=== PATIENT | female | born 1960 | race African-American/Black ===

== ENCOUNTER 2017-10-20 23:36 | Inpatient (IN) | payer MEDICARE, MEDICAID ==
[~2017-10-20] VITALS: Ht 165.1 cm; Wt 162.4 kg
[~2017-10-20 23:36] MED LIST: AMLO5TAB4 PO; DOCU250C87 PO; FLUT1DIS6 IH; FURO-152 PO; IBUP-2030 PO; LISI40TA4 PO; METO100T16 PO; SPIR50TA26 PO; [UNRECOGNIZED DRUG - CODE] PO
[2017-10-20] MEDS ORDERED: ALBUTEROL (0.083%) 2.5MG/3ML NEB HHN STA (23:41)
[2017-10-20] MEDS ORDERED: FUROSEMIDE 40MG/4ML VIAL IV STA (23:41)
[2017-10-20] MEDS ORDERED: IPRATROPIUM BROMIDE (0.02%) 0.5MG/2.5ML NEB HHN STA (23:41)
[2017-10-20] MEDS ORDERED: METHYLPREDNISOLONE SOD SUCC 125 MG/2 ML VIAL IV STA (23:41)
[2017-10-20] MEDS ORDERED: NITROGLYCERIN OINT 1GM/INCH UDPKT TD STA (23:41)
[2017-10-21] VITALS (7 sets, daily range): BP systolic 136–182; BP diastolic 71–101
[2017-10-21 00:37] LABS: BASOPHILS % 0.5 % (0.0-2.0); EOSINOPHILS % 2.9 % (0.0-5.0); HEMATOCRIT. 33.8 % (36.0-48.0); HEMOGLOBIN. 11.1 g/dL (12.0-16.0); MEAN CORPUSCULAR HEMOGLOBIN 28.4 pg (28.0-32.0); MEAN CORPUSCULAR VOLUME 86.7 fL (81.0-99.0); MEAN PLATELET VOLUME 7.1 fl (7.4-10.4); MONOCYTES % 9.9 % (2.0-8.0); NEUTROPHILS % 60.7 % (40.0-76.0); PLATELET 375 x1000/uL (130-400); RED CELL DISTRIBUTION WIDTH 15.2 % (11.6-14.6)
[2017-10-21 00:46] LABS: INR 1.1; PROTHROMBIN TIME 11.1 sec (9.4-11.6)
[2017-10-21 00:50] LABS: CHLORIDE 106 mEq/L (98-107)
[2017-10-21] MEDS ORDERED: ONDANSETRON HCL 4MG/2ML VIAL IV PRN (06:30)
[2017-10-21] MEDS ORDERED: IPRATROPIUM/ALBUTEROL 0.5-3(2.5)MG/3ML NEB INH PRN (06:30)
[2017-10-21] MEDS ORDERED: LORAZEPAM 2MG/ML CPJ IV PRN (06:30)
[2017-10-21] MEDS ORDERED: DIPHENHYDRAMINE 50MG/ML VIAL IV PRN (06:30)
[2017-10-21] MEDS ORDERED: DOCUSATE SODIUM 100MG CAPSULE PO PRN (06:30)
[2017-10-21] MEDS ORDERED: NA PHOS,M-B/NA PHOS,DI-BA ENEMA 118ML PR PRN (06:30)
[2017-10-21] MEDS ORDERED: GUAIFENESIN 200MG/10ML SUGAR FREE UDC PO PRN (06:30)
[2017-10-21] MEDS ORDERED: MAGNESIUM/ALUMINUM HYDROXIDE/SIMETHICONE 30ML UDC PO PRN (06:30)
[2017-10-21 07:19] LABS: CHLORIDE 107 mEq/L (98-107)
[2017-10-21] MEDS ORDERED: LIDOCAINE HCL/PF 1% 2ML VIAL ONE (09:36)
[2017-10-21] MEDS ORDERED: MORPHINE SULFATE 4 MG/ML CPJ (NOT FOR IM USE) IV PRN (10:00)
[2017-10-21] MEDS: ASPIRIN 81MG EC TABLET PO SCH (10:18)
[2017-10-21] MEDS: ENOXAPARIN 40MG/0.4ML SYR SUBCUT SCH ×2 (10:19→21:49)
[2017-10-21] MEDS: FUROSEMIDE 40MG/4ML VIAL IV SCH (10:19)
[2017-10-21] MEDS: HYDROCODONE/ACETAMINOPHEN 5/325MG TABLET PO PRN (10:27)
[2017-10-21] MEDS: HYDRALAZINE HCL 50MG TABLET PO SCH ×2 (14:57→21:49)
[2017-10-21 17:52] LABS: BG BASE EXCESS 2.2 mmol/L (-2.0-2.0); BG BILEVEL POS AIRWAY PRESSURE 15/5; BG CARBOXYHEMOGLOBIN 0.2 % (0.5-1.5); BG DEOXYHEMOGLOBIN 1.1 % (0.0-5.0); BG FRACTION INSPIRED OXYGEN 50; BG HCO3 ACT 29.5 mmol/L (22.0-26.0); BG METHEMOGLOBIN 0.3 % (0.0-1.5); BG OXYGEN SATURATION 98.9 % (92.0-98.5); BG OXYHEMOGLOBIN 98.4 % (94.0-97.0); BG PCO2 59.1 mmHg (35.0-45.0); BG PH 7.316 (7.350-7.450); BG PO2 162.6 mmHg (75.0-100.0); BG SAMPLE SITE RIGHT RADIAL; BG TOTAL HEMOGLOBIN 11.8 g/dL (12.0-18.0); BG VENT MODE MASK - BIPAP; BG VENT RATE 16 set
[2017-10-21] MEDS ORDERED: HYDRALAZINE HCL 50MG TABLET PO SCH (22:00)
[2017-10-22] VITALS (13 sets, daily range): BP systolic 124–193; BP diastolic 23–122
[2017-10-22 01:39] LABS: CREATINE KINASE 191 IU/L (26-192); CREATINE KINASE MB FRACTION 2.5 ng/mL (0.5-3.6)
[2017-10-22] MEDS: IPRATROPIUM/ALBUTEROL 0.5-3(2.5)MG/3ML NEB HHN SCH ×5 (04:31→20:16)
[2017-10-22] MEDS: HYDROCODONE/ACETAMINOPHEN 5/325MG TABLET PO PRN ×3 (05:06→20:59)
[2017-10-22] MEDS: HYDRALAZINE HCL 50MG TABLET PO SCH ×3 (05:41→20:59)
[2017-10-22 06:49] LABS: BASOPHILS % 0.4 % (0.0-2.0); EOSINOPHILS % 0.2 % (0.0-5.0); HEMATOCRIT. 32.6 % (36.0-48.0); HEMOGLOBIN. 10.3 g/dL (12.0-16.0); LYMPHOCYTES % 22.5 % (20.0-50.0); MEAN CORPUSCULAR HEMOGLOBIN 27.8 pg (28.0-32.0); MEAN CORPUSCULAR VOLUME 87.6 fL (81.0-99.0); MEAN PLATELET VOLUME 7.4 fl (7.4-10.4); MONOCYTES % 9.1 % (2.0-8.0); NEUTROPHILS % 67.8 % (40.0-76.0); PLATELET 355 x1000/uL (130-400); RED BLOOD CELL COUNT 3.72 mill/uL (4.2-5.4); RED CELL DISTRIBUTION WIDTH 15.5 % (11.6-14.6)
[2017-10-22] MEDS: ENOXAPARIN 40MG/0.4ML SYR SUBCUT SCH ×2 (08:39→21:00)
[2017-10-22] MEDS: FUROSEMIDE 40MG/4ML VIAL IV SCH (08:39)
[2017-10-22] MEDS: ASPIRIN 81MG EC TABLET PO SCH (08:40)
[2017-10-22] MEDS ORDERED: LIDOCAINE HCL/PF 1% 2ML VIAL ONE (09:33)
[2017-10-22 09:45] LABS: CHLORIDE 105 mEq/L (98-107)
[2017-10-22 10:00] LABS: CREATINE KINASE 192 IU/L (26-192); CREATINE KINASE MB FRACTION 2.2 ng/mL (0.5-3.6); HDL CHOLESTEROL 48 mg/dL (40-59); LDL CHOLESTEROL 112 mg/dL (5-100); T4 FREE 1.18 ng/dL (0.76-1.46)
[2017-10-22 15:23] LABS: BG BASE EXCESS 6.4 mmol/L (-2.0-2.0); BG CARBOXYHEMOGLOBIN 0.8 % (0.5-1.5); BG DEOXYHEMOGLOBIN 3.1 % (0.0-5.0); BG FRACTION INSPIRED OXYGEN 36; BG METHEMOGLOBIN 0.3 % (0.0-1.5); BG OXYGEN SATURATION 96.9 % (92.0-98.5); BG OXYHEMOGLOBIN 95.8 % (94.0-97.0); BG PCO2 57.4 mmHg (35.0-45.0); BG PH 7.377 (7.350-7.450); BG PO2 88.9 mmHg (75.0-100.0); BG SAMPLE SITE RIGHT RADIAL; BG TOTAL HEMOGLOBIN 11.4 g/dL (12.0-18.0); BG VENT MODE NASAL CANNULA
[2017-10-22 17:51] LABS: CREATINE KINASE MB FRACTION 1.7 ng/mL (0.5-3.6)
[2017-10-23] VITALS (17 sets, daily range): BP systolic 130–195; BP diastolic 54–121
[2017-10-23] MEDS: IPRATROPIUM/ALBUTEROL 0.5-3(2.5)MG/3ML NEB HHN SCH ×6 (00:51→21:53)
[2017-10-23] MEDS: HYDRALAZINE HCL 50MG TABLET PO SCH ×3 (05:10→21:16)
[2017-10-23 07:20] LABS: BASOPHILS % 0.7 % (0.0-2.0); EOSINOPHILS % 2.2 % (0.0-5.0); HEMOGLOBIN. 10.3 g/dL (12.0-16.0); LYMPHOCYTES % 34.3 % (20.0-50.0); MEAN CORPUSCULAR HEMOGLOBIN 28.1 pg (28.0-32.0); MEAN CORPUSCULAR VOLUME 87.7 fL (81.0-99.0); MEAN PLATELET VOLUME 7.6 fl (7.4-10.4); MONOCYTES % 9.1 % (2.0-8.0); NEUTROPHILS % 53.7 % (40.0-76.0); PLATELET 355 x1000/uL (130-400); RED BLOOD CELL COUNT 3.65 mill/uL (4.2-5.4); RED CELL DISTRIBUTION WIDTH 14.9 % (11.6-14.6)
[2017-10-23 07:32] LABS: CHLORIDE 104 mEq/L (98-107)
[2017-10-23] MEDS: FUROSEMIDE 40MG/4ML VIAL IV SCH (09:39)
[2017-10-23] MEDS: ASPIRIN 81MG EC TABLET PO SCH (09:40)
[2017-10-23] MEDS: ENOXAPARIN 40MG/0.4ML SYR SUBCUT SCH ×2 (09:40→21:17)
[2017-10-23] MEDS: CLONIDINE 0.1MG TABLET PO PRN (17:01)
[2017-10-23] MEDS: HYDROCODONE/ACETAMINOPHEN 5/325MG TABLET PO PRN (17:01)
[2017-10-24] VITALS (12 sets, daily range): BP systolic 91–178; BP diastolic 49–112
[2017-10-24] MEDS: IPRATROPIUM/ALBUTEROL 0.5-3(2.5)MG/3ML NEB HHN SCH ×6 (00:36→20:31)
[2017-10-24] MEDS: HYDRALAZINE HCL 50MG TABLET PO SCH ×3 (05:43→21:52)
[2017-10-24] MEDS: FUROSEMIDE 40MG/4ML VIAL IV SCH (08:58)
[2017-10-24] MEDS: ASPIRIN 81MG EC TABLET PO SCH (08:58)
[2017-10-24] MEDS: ENOXAPARIN 40MG/0.4ML SYR SUBCUT SCH ×2 (08:58→21:53)
[2017-10-24] MEDS: CLONIDINE 0.1MG TABLET PO PRN (12:49)
[2017-10-24] MEDS: HYDROCODONE/ACETAMINOPHEN 5/325MG TABLET PO PRN ×2 (13:15→21:56)
[2017-10-25] VITALS (12 sets, daily range): BP systolic 109–159; BP diastolic 62–96
[2017-10-25] MEDS: IPRATROPIUM/ALBUTEROL 0.5-3(2.5)MG/3ML NEB HHN SCH ×6 (00:07→20:43)
[2017-10-25 06:43] LABS: BASOPHILS % 0.6 % (0.0-2.0); EOSINOPHILS % 3.8 % (0.0-5.0); HEMATOCRIT. 33.4 % (36.0-48.0); HEMOGLOBIN. 10.7 g/dL (12.0-16.0); LYMPHOCYTES % 25.9 % (20.0-50.0); MEAN CORPUSCULAR HEMOGLOBIN 27.9 pg (28.0-32.0); MEAN CORPUSCULAR VOLUME 86.9 fL (81.0-99.0); MEAN PLATELET VOLUME 7.4 fl (7.4-10.4); MONOCYTES % 12.1 % (2.0-8.0); NEUTROPHILS % 57.6 % (40.0-76.0); PLATELET 353 x1000/uL (130-400); RED BLOOD CELL COUNT 3.85 mill/uL (4.2-5.4)
[2017-10-25] MEDS: HYDRALAZINE HCL 50MG TABLET PO SCH ×3 (07:01→21:13)
[2017-10-25 07:42] LABS: CHLORIDE 101 mEq/L (98-107)
[2017-10-25] MEDS: ENOXAPARIN 40MG/0.4ML SYR SUBCUT SCH ×2 (08:17→21:13)
[2017-10-25] MEDS: FUROSEMIDE 40MG/4ML VIAL IV SCH (08:17)
[2017-10-25] MEDS: ASPIRIN 81MG EC TABLET PO SCH (08:17)
[2017-10-25] MEDS: HYDROCODONE/ACETAMINOPHEN 5/325MG TABLET PO PRN (21:13)
[2017-10-26] VITALS (12 sets, daily range): BP systolic 112–179; BP diastolic 62–111
[2017-10-26] MEDS: IPRATROPIUM/ALBUTEROL 0.5-3(2.5)MG/3ML NEB HHN SCH ×6 (00:16→20:03)
[2017-10-26] MEDS: HYDRALAZINE HCL 50MG TABLET PO SCH ×3 (06:41→22:29)
[2017-10-26] MEDS: FUROSEMIDE 40MG/4ML VIAL IV SCH (08:46)
[2017-10-26] MEDS: ASPIRIN 81MG EC TABLET PO SCH (08:46)
[2017-10-26] MEDS: ENOXAPARIN 40MG/0.4ML SYR SUBCUT SCH ×2 (08:46→22:28)
[2017-10-26] MEDS: CLONIDINE 0.1MG TABLET PO PRN (16:47)
[2017-10-26] MEDS: ACETAMINOPHEN 325MG TABLET PO PRN (16:53)
[2017-10-27] VITALS (12 sets, daily range): BP systolic 127–166; BP diastolic 56–109
[2017-10-27] MEDS: IPRATROPIUM/ALBUTEROL 0.5-3(2.5)MG/3ML NEB HHN SCH ×6 (01:00→20:05)
[2017-10-27 06:22] LABS: BASOPHILS % 0.6 % (0.0-2.0); EOSINOPHILS % 2.5 % (0.0-5.0); HEMATOCRIT. 33.5 % (36.0-48.0); HEMOGLOBIN. 10.9 g/dL (12.0-16.0); LYMPHOCYTES % 29.3 % (20.0-50.0); MEAN CORPUSCULAR HEMOGLOBIN 28.2 pg (28.0-32.0); MEAN CORPUSCULAR VOLUME 86.8 fL (81.0-99.0); MEAN PLATELET VOLUME 7.5 fl (7.4-10.4); MONOCYTES % 11.9 % (2.0-8.0); NEUTROPHILS % 55.7 % (40.0-76.0); PLATELET 321 x1000/uL (130-400); RED BLOOD CELL COUNT 3.86 mill/uL (4.2-5.4); RED CELL DISTRIBUTION WIDTH 14.9 % (11.6-14.6)
[2017-10-27] MEDS: HYDRALAZINE HCL 50MG TABLET PO SCH ×3 (06:59→21:00)
[2017-10-27 07:13] LABS: CHLORIDE 101 mEq/L (98-107)
[2017-10-27] MEDS: FUROSEMIDE 40MG/4ML VIAL IV SCH (09:16)
[2017-10-27] MEDS: ASPIRIN 81MG EC TABLET PO SCH (09:17)
[2017-10-27] MEDS: ENOXAPARIN 40MG/0.4ML SYR SUBCUT SCH ×2 (09:17→20:58)
[2017-10-27] MEDS: ACETAMINOPHEN 325MG TABLET PO PRN (17:55)
[2017-10-27] MEDS: CLONIDINE 0.1MG TABLET PO PRN (17:55)
[2017-10-28] VITALS (12 sets, daily range): BP systolic 120–163; BP diastolic 56–94
[2017-10-28] MEDS: IPRATROPIUM/ALBUTEROL 0.5-3(2.5)MG/3ML NEB HHN SCH ×6 (00:44→20:45)
[2017-10-28] MEDS: HYDRALAZINE HCL 50MG TABLET PO SCH ×3 (06:02→21:27)
[2017-10-28] MEDS: ENOXAPARIN 40MG/0.4ML SYR SUBCUT SCH ×2 (08:29→21:28)
[2017-10-28] MEDS: ASPIRIN 81MG EC TABLET PO SCH (08:29)
[2017-10-28] MEDS: FUROSEMIDE 40MG/4ML VIAL IV SCH (08:30)
[2017-10-29] VITALS (10 sets, daily range): BP systolic 140–174; BP diastolic 73–98
[2017-10-29] MEDS: IPRATROPIUM/ALBUTEROL 0.5-3(2.5)MG/3ML NEB HHN SCH ×5 (00:44→17:00)
[2017-10-29 06:30] LABS: BASOPHILS % 0.8 % (0.0-2.0); EOSINOPHILS % 2.6 % (0.0-5.0); HEMATOCRIT. 34.8 % (36.0-48.0); LYMPHOCYTES % 30.6 % (20.0-50.0); MEAN CORPUSCULAR HEMOGLOBIN 27.8 pg (28.0-32.0); MEAN CORPUSCULAR VOLUME 87.7 fL (81.0-99.0); MEAN PLATELET VOLUME 8.2 fl (7.4-10.4); MONOCYTES % 13.4 % (2.0-8.0); NEUTROPHILS % 52.6 % (40.0-76.0); PLATELET 337 x1000/uL (130-400); RED BLOOD CELL COUNT 3.97 mill/uL (4.2-5.4); RED CELL DISTRIBUTION WIDTH 15.2 % (11.6-14.6)
[2017-10-29] MEDS: HYDRALAZINE HCL 50MG TABLET PO SCH ×2 (06:37→13:57)
[2017-10-29 08:19] LABS: CHLORIDE 101 mEq/L (98-107)
[2017-10-29] MEDS: FUROSEMIDE 40MG/4ML VIAL IV SCH (09:26)
[2017-10-29] MEDS: ENOXAPARIN 40MG/0.4ML SYR SUBCUT SCH (09:26)
[2017-10-29] MEDS: ASPIRIN 81MG EC TABLET PO SCH (09:26)
[2017-10-29] MEDS: CLONIDINE 0.1MG TABLET PO PRN (12:27)
== END 2017-10-29 16:30 | disposition home or self-care (01) | DRG 291 ==
LOC: ER 23:36 → 5EST 10-21 01:28 → EDBEDREQDT 10-21 01:29 → EDBEDREQTM 10-21 01:29 → EDBEDREQ 10-21 01:29 → ENRESERV 10-21 08:46
PROVIDERS: ADMIT Internal Medicine; ATTEND Internal Medicine
PROC: 5A09457 Assistance with Respiratory Ventilation, 24-96 Consecutive Hours, Continuous Positive Airway Pressure (ICD-10-PCS; 2017-10-20)
PROC: 0HBLXZZ Excision of Left Lower Leg Skin, External Approach (ICD-10-PCS; principal; 2017-10-22)
PROC: 0HBKXZZ Excision of Right Lower Leg Skin, External Approach (ICD-10-PCS; 2017-10-22)
PROC: 5A09357 Assistance with Respiratory Ventilation, Less than 24 Consecutive Hours, Continuous Positive Airway Pressure (ICD-10-PCS; 2017-10-23)
PROC: 5A09357 Assistance with Respiratory Ventilation, Less than 24 Consecutive Hours, Continuous Positive Airway Pressure (ICD-10-PCS; 2017-10-24)
PROC: 5A09357 Assistance with Respiratory Ventilation, Less than 24 Consecutive Hours, Continuous Positive Airway Pressure (ICD-10-PCS; 2017-10-25)
PROC: 5A09357 Assistance with Respiratory Ventilation, Less than 24 Consecutive Hours, Continuous Positive Airway Pressure (ICD-10-PCS; 2017-10-27)
PROC: 5A09357 Assistance with Respiratory Ventilation, Less than 24 Consecutive Hours, Continuous Positive Airway Pressure (ICD-10-PCS; 2017-10-28)
DX: I11.0 Hypertensive heart disease with heart failure (principal); J96.00 Acute respiratory failure, unspecified whether with hypoxia or hypercapnia; L97.919 Non-pressure chronic ulcer of unspecified part of right lower leg with unspecified severity; E44.1 Mild protein-calorie malnutrition; J44.1 Chronic obstructive pulmonary disease with (acute) exacerbation; L97.929 Non-pressure chronic ulcer of unspecified part of left lower leg with unspecified severity; Z68.43 Body mass index [BMI] 50.0-59.9, adult; I50.43 Acute on chronic combined systolic (congestive) and diastolic (congestive) heart failure; I42.9 Cardiomyopathy, unspecified; E66.01 Morbid (severe) obesity due to excess calories; E78.5 Hyperlipidemia, unspecified; D64.9 Anemia, unspecified; Z79.899 Other long term (current) drug therapy; G47.33 Obstructive sleep apnea (adult) (pediatric); Z82.49 Family history of ischemic heart disease and other diseases of the circulatory system; Z86.718 Personal history of other venous thrombosis and embolism; Z88.6 Allergy status to analgesic agent
CPT/HCPCS: 36415; 36600; 71045; 80048; 80053; 80061; 82375; 82550; 82553; 82805; 83036; 83605; 83690; 83880; 84439; 84443; 84481; 84484; 85025; 85379; 85610; 87040; 93005; 93308; 93970; 94618; 94640; 94660; 96374; 96375; 97110; 97116; 97163; 97166; 97530; 97535; 99291; J1650; J1940; J2060; J2930; J3490; J7611; J7620; A4315